=== PATIENT | male | born 2005 | race Caucasian/White ===

== ENCOUNTER 2024-07-26 12:32 | Emergency (ER) | payer OTHER ==
[~2024-07-26] VITALS: Ht 175.3 cm; Wt 72.7 kg
[2024-07-26 13:14] VITALS: BP 108/78; PULSE 56; RESP 16; TEMP 98.2; O2SAT 98
== END 2024-07-26 14:19 | disposition home or self-care (01) ==
LOC: EMS 12:35
DX: S10.86XA Insect bite of other specified part of neck, initial encounter (principal); R59.1 Generalized enlarged lymph nodes; W57.XXXA Bitten or stung by nonvenomous insect and other nonvenomous arthropods, initial encounter; Y93.89 Activity, other specified; Y92.89 Other specified places as the place of occurrence of the external cause; Y99.8 Other external cause status
CPT/HCPCS: 99283; Z7502